=== PATIENT | female | born 1995 | race African-American/Black ===

== ENCOUNTER 2017-09-03 06:37 | Emergency (ER) | payer BC, MEDICAID ==
[~2017-09-03] VITALS: Ht 172.7 cm; Wt 55.0 kg
[~2017-09-03 06:37] MED LIST: ASAC800T PO
[2017-09-03 06:38] VITALS: BP 135/80; PULSE 101; RESP 16; TEMP 98.7; O2SAT 100
[2017-09-03] MEDS ORDERED: ONDANSETRON HCL 4 MG/2 ML VIAL IV PUSH ONE (07:00)
[2017-09-03] MEDS ORDERED: SODIUM CHLOR 0.9% 1000 ML INJ 1,000 ML IV ONE ×2 (07:00→08:30)
[2017-09-03] MEDS ORDERED: SODIUM CHLORIDE 0.9% FLUSH 10 ML FLUSH IVF PRN (07:00)
[2017-09-03 07:42] LABS: AUTOMATED NEUTROPHIL # 7.8 TH/MM3 (1.8-7.7); BASOPHIL # 0.1 TH/MM3 (0-0.2); BASOPHIL % 0.8 % (0.0-2.0); EOSINOPHIL # 0.1 TH/MM3 (0-0.4); EOSINOPHIL % 0.6 % (0.0-4.0); HEMATOCRIT 40.1 % (35.0-46.0); HEMO FLAGS DIFF FINAL; LYMPH % 21.5 % (9.0-44.0); LYMPHOCYTE # 2.3 TH/MM3 (1.0-4.8); MEAN CELL VOLUME 86.7 FL (80.0-100.0); MEAN CORPUSCULAR HEMOGLOBIN 29.6 PG (27.0-34.0); MEAN CORPUSCULAR HGB CONC 34.1 % (32.0-36.0); MONO % 3.7 % (0.0-8.0); NEUT % 73.4 % (16.0-70.0); PLATELET COUNT 230 TH/MM3 (150-450); RED BLOOD COUNT 4.62 MIL/MM3 (4.00-5.30); RED CELL DISTRIBUTION WIDTH 13.1 % (11.6-17.2); WHITE BLOOD COUNT 10.6 TH/MM3 (4.0-11.0)
[2017-09-03] MEDS ORDERED: ZOFR4TAB PO (07:44)
--- NOTE | 2017-09-03 07:44 | PD ---
HPI . Vomiting Chief Complaint: GI Complaint Time Seen by Provider: 07:00 Travel History International Travel<30 days: No Contact w/Intl Traveler<30days: No Traveled to known affect area: No History of Present Illness HPI This patient presents with a chief complaint of vomiting. Onset was 2 AM. Diarrhea. No urinary tract symptoms. No [employer] symptoms. Subjective fevers and chills. No modifying factors. PFSH Past Medical History Narrative Medical Previous "kidney problems." Medical History: Denies Significant Hx Diminished Hearing: No Gastrointestinal Disorders: Yes (COLITIS) ?: Not LMP: AUG 28, 2017 : 0 Past Surgical History Surgical History: No Previous Surgery Social History Alcohol Use: Yes (SOCIALLY) Tobacco Use: Yes Substance Use: No Allergies-Medications (Allergen,Severity, Reaction): Coded Allergies: sulfamethoxazole (Unverified Allergy, Mild, rash, 05/23/17) hives trimethoprim (Unverified Allergy, Mild, rash, 05/23/17) hives Reported Meds & Prescriptions Reported Meds & Active Scripts Active Zofran (Ondansetron HCl) 4 Mg Tab 4 Mg PO Q6HR PRN Reported Asacol Hd (Mesalamine) 800 Mg Tab 800 Mg PO Review of Systems Except as stated in HPI: all other systems reviewed are Neg General / Constitutional: Positive: Fever, Chills Gastrointestinal: Positive: Nausea, Vomiting, No: Diarrhea, Abdominal Pain Genitourinary: No: Urgency, Frequency, Dysuria, Discharge, Vaginal Bleeding Physical Exam Narrative GENERAL: Awake and alert and in no acute distress. SKIN: warm/dry. Good turgor. HEAD: Normocephalic. Atraumatic. EYES: Pupils equal and round. No scleral icterus. No injection or drainage. ENT: No nasal bleeding or discharge. Mucous membranes pink and moist. NECK: Trachea midline. Full range of motion without pain.. CARDIOVASCULAR: Regular rate and rhythm. RESPIRATORY: No accessory muscle use. Clear to auscultation. Breath sounds equal bilaterally. GASTROINTESTINAL: Abdomen soft. Nontender. Bowel sounds present. Nondistended. : MUSCULOSKELETAL: No obvious deformities. NEUROLOGICAL: Awake and alert. No obvious cranial nerve deficits. Motor grossly within normal limits. Normal speech. PSYCHIATRIC: Appropriate mood and affect; insight and judgment normal. Data Data Last Documented VS Vital Signs Date Time Temp Pulse Resp B/P (MAP) Pulse Ox O2 Delivery O2 Flow Rate FiO2 09/03/17 06:38 98.7 101 16 135/80 (98) 100 Room Air Orders Orders Complete Blood Count With Diff (09/03/17 07:00) Basic Metabolic Panel (Bmp) (09/03/17 07:00) Urinalysis - C+S If Indicated (09/03/17 07:00) Iv Access Insert/Monitor (09/03/17 07:00) Ondansetron Inj (Zofran Inj) (09/03/17 07:00) Sodium Chlor 0.9% 1000 Ml Inj (Ns 1000 M (09/03/17 07:00) Sodium Chloride 0.9% Flush (Ns Flush) (09/03/17 07:00) Ed Urine Pregnancytest Poc (09/03/17 07:00) Diphenhydramine Inj (Benadryl Inj) (09/03/17 08:30) Prochlorperazine Inj (Compazine Inj) (09/03/17 08:30) Sodium Chlor 0.9% 1000 Ml Inj (Ns 1000 M (09/03/17 08:30) Labs Laboratory Tests Test 09/03/17 07:20 White Blood Count 10.6 TH/MM3 Red Blood Count 4.62 MIL/MM3 Hemoglobin 13.7 GM/DL Hematocrit 40.1 % Mean Corpuscular Volume 86.7 FL Mean Corpuscular Hemoglobin 29.6 PG Mean Corpuscular Hemoglobin Concent 34.1 % Red Cell Distribution Width 13.1 % Platelet Count 230 TH/MM3 Mean Platelet Volume 8.9 FL Neutrophils (%) (Auto) 73.4 % Lymphocytes (%) (Auto) 21.5 % Monocytes (%) (Auto) 3.7 % Eosinophils (%) (Auto) 0.6 % Basophils (%) (Auto) 0.8 % Neutrophils # (Auto) 7.8 TH/MM3 Lymphocytes # (Auto) 2.3 TH/MM3 Monocytes # (Auto) 0.4 TH/MM3 Eosinophils # (Auto) 0.1 TH/MM3 Basophils # (Auto) 0.1 TH/MM3 CBC Comment DIFF FINAL Differential Comment Urine Color YELLOW Urine Turbidity HAZY Urine pH 8.5 Urine Specific [place] 1.021 Urine Protein 100 mg/dL Urine Glucose (UA) NEG mg/dL Urine Ketones 10 mg/dL Urine Occult Blood NEG Urine Nitrite NEG Urine Bilirubin NEG Urine Urobilinogen LESS THAN 2.0 MG/DL Urine Leukocyte Esterase NEG Urine RBC 1 /hpf Urine WBC 1 /hpf Urine Squamous Epithelial Cells 22 /hpf Urine Bacteria RARE /hpf Urine Mucus FEW /lpf Microscopic Urinalysis Comment CULT NOT INDICATED Blood Urea Nitrogen 10 MG/DL Creatinine 0.83 MG/DL Random Glucose 152 MG/DL Calcium Level 8.9 MG/DL Sodium Level 137 MEQ/L Potassium Level 3.2 MEQ/L Chloride Level 103 MEQ/L Carbon Dioxide Level 24.6 MEQ/L Anion Gap 9 MEQ/L Estimat Glomerular Filtration Rate 104 ML/MIN [facility] Medical Decision Making Medical Screen Exam Complete: Yes Emergency Medical Condition: Yes Differential Diagnosis Differential diagnosis includes but is not limited to viral gastritis, food poisoning, pancreatitis, pneumonia, hepatitis, acute coronary syndrome, Narrative Course This patient presents with acute nausea and vomiting. She appears well- hydrated. However, she does mention that she has been told in the past that she has some sort of kidney issue. Her nausea and vomiting is being treated with IV Zofran. She'll be given a liter of fluid. I will check basic labs, urinalysis and test. HCG neg. UA neg. CBC & BMP Diagram 09/03/17 07:20 Calcium Level 8.9 The patient rates that she continues to feel nauseous and having dry heaves. I will give her another liter of fluid along with Compazine and Benadryl. 0930 AM Patient is now resting comfortably. She has had no further nausea or dry heaves is being given Compazine and Benadryl. She will now be discharged home. Diagnosis Primary Impression: Vomiting Qualified Codes: R11.2 - Nausea with vomiting, unspecified Patient Instructions: Acute Nausea and Vomiting (DC), General Instructions Med/Other Pt SpecificInfo: Prescription(s) given Scripts Ondansetron (Zofran) 4 Mg Tab 4 MG PO Q6HR Y for NAUSEA OR VOMITING, #6 TAB 0 Refills Prov: Chantelle Mcmanus MD 09/03/17 Disposition: 01 DISCHARGE HOME Condition: Stable Chantelle Mcmanus MD Sep 03, 2017 07:44
[2017-09-03 07:51] LABS: BACTERIA, URINE RARE /hpf; BLOOD, URINE NEG (NEG); COMMENT (UR) CULT NOT INDICATED; CULTURE IF INDICATED CULT NOT INDICATED; GLUCOSE,URINE NEG (NEG); KETONE, URINE 10 mg/dL (NEG); MUCUS URINE FEW /lpf (OCC); NITRITE,URINE NEG (NEG); PH, URINE 8.5 (5.0-8.5); SQUAMOUS EPITHELIAL CELL URINE 22 /hpf (0-5); URINE COLOR YELLOW (YELLW/STRAW)
[2017-09-03 08:11] LABS: BICARBONATE 24.6 MEQ/L (21.0-32.0); POTASSIUM 3.2 MEQ/L (3.5-5.1)
[2017-09-03] MEDS ORDERED: PROCHLORPERAZINE INJ 10 MG/2 ML VIAL IV PUSH ONE (08:30)
[2017-09-03] MEDS ORDERED: diphenhydrAMINE HCL 50 MG/ML VIAL IV PUSH ONE (08:30)
[2017-09-03 10:19] VITALS: BP 124/72
== END 2017-09-03 10:20 | disposition home or self-care (01) ==
LOC: NEPC 06:37
DX: R11.2 Nausea with vomiting, unspecified (principal); R19.7 Diarrhea, unspecified; Z72.0 Tobacco use
CPT/HCPCS: 80048; 81001; 84703; 85025; 96361; 96374; 96375; 99285; J0780; J1200; J2405; J7030

== ENCOUNTER 2018-01-19 16:09 | Emergency (ER) | payer BC, MEDICAID ==
[~2018-01-19] VITALS: Ht 172.7 cm; Wt 56.5 kg
[~2018-01-19 16:09] MED LIST changes: +ZOFR4TAB PO
[2018-01-19 16:29] VITALS: BP 112/55; PULSE 57; RESP 18; TEMP 99.3; O2SAT 100
[2018-01-19 19:48] VITALS: BP 147/76; PULSE 62; RESP 18; O2SAT 100
[2018-01-19] MEDS ORDERED: SODIUM CHLOR 0.9% 1000 ML INJ 1,000 ML IV SCH (20:48)
--- NOTE | 2018-01-19 20:50 | PD ---
HPI Chief Complaint: GI Complaint Time Seen by Provider: 20:46 Travel History International Travel<30 days: No Contact w/Intl Traveler<30days: No Traveled to known affect area: No History of Present Illness HPI 22-year-old female here for evaluation of nausea, vomiting, abdominal cramping, body cramping. Patient admits to drinking a moderate amount of alcohol yesterday evening. She states she usually does not drink alcohol. She denies illicit drug use. Currently she denies having abdominal pain. She has had several episodes of vomiting. She was having some left upper quadrant abdominal discomfort which has resolved. She complains of diffuse body cramps. PFSH Past Medical History Diminished Hearing: No Gastrointestinal Disorders: Yes (COLITIS) Tetanus Vaccination: < 5 Years ?: Not LMP: 01/19/18 : 0 Past Surgical History Surgical History: No Previous Surgery Social History Alcohol Use: Yes (SOCIALLY) Tobacco Use: Yes Substance Use: Yes (Marijuana occasionally) Allergies-Medications (Allergen,Severity, Reaction): Coded Allergies: sulfamethoxazole (Unverified Allergy, Mild, rash, 01/19/18) hives trimethoprim (Unverified Allergy, Mild, rash, 01/19/18) hives Reported Meds & Prescriptions Reported Meds & Active Scripts Active No Active Prescriptions or Reported Medications Review of Systems Except as stated in HPI: all other systems reviewed are Neg Physical Exam Narrative GENERAL: Well-developed, well-nourished, comfortable, no apparent distress. SKIN: Focused skin assessment warm/dry. HEAD: Atraumatic. Normocephalic. EYES: Pupils equal and round. No scleral icterus. No injection or drainage. ENT: No nasal bleeding or discharge. Mucous membranes pink and moist. NECK: Trachea midline. No JVD. CARDIOVASCULAR: Regular rate and rhythm. RESPIRATORY: No accessory muscle use. Clear to auscultation. Breath sounds equal bilaterally. GASTROINTESTINAL: Abdomen soft, non-tender, nondistended. MUSCULOSKELETAL: No obvious deformities. No clubbing. No cyanosis. No edema. NEUROLOGICAL: Awake and alert. No obvious cranial nerve deficits. Motor grossly within normal limits. Normal speech. PSYCHIATRIC: Appropriate mood and affect; insight and judgment normal. Data Data Last Documented VS Vital Signs Date Time Temp Pulse Resp B/P (MAP) Pulse Ox O2 Delivery O2 Flow Rate FiO2 01/19/18 19:48 62 18 147/76 (99) 100 Room Air 01/19/18 16:29 99.3 Orders Orders Beta Hcg (Quant/Titer) (01/19/18 20:48) Complete Blood Count With Diff (01/19/18 20:48) Comprehensive Metabolic Panel (01/19/18 20:48) Lipase (01/19/18 20:48) Urinalysis - C+S If Indicated (01/19/18 20:48) Iv Access Insert/Monitor (01/19/18 20:48) Ecg Monitoring (01/19/18 20:48) Oximetry (01/19/18 20:48) Sodium Chlor 0.9% 1000 Ml Inj (Ns 1000 M (01/19/18 20:48) Sodium Chloride 0.9% Flush (Ns Flush) (01/19/18 21:00) Ondansetron Inj (Zofran Inj) (01/19/18 21:00) Potassium Chloride (Kcl) (01/19/18 22:00) Labs Laboratory Tests Test 01/19/18 21:10 White Blood Count 16.3 TH/MM3 Red Blood Count 4.45 MIL/MM3 Hemoglobin 13.4 GM/DL Hematocrit 39.5 % Mean Corpuscular Volume 88.9 FL Mean Corpuscular Hemoglobin 30.2 PG Mean Corpuscular Hemoglobin Concent 34.0 % Red Cell Distribution Width 13.1 % Platelet Count 208 TH/MM3 Mean Platelet Volume 9.1 FL Neutrophils (%) (Auto) 86.4 % Lymphocytes (%) (Auto) 7.5 % Monocytes (%) (Auto) 5.7 % Eosinophils (%) (Auto) 0.0 % Basophils (%) (Auto) 0.4 % Neutrophils # (Auto) 14.1 TH/MM3 Lymphocytes # (Auto) 1.2 TH/MM3 Monocytes # (Auto) 0.9 TH/MM3 Eosinophils # (Auto) 0.0 TH/MM3 Basophils # (Auto) 0.1 TH/MM3 CBC Comment DIFF FINAL Differential Comment Urine Color YELLOW Urine Turbidity CLEAR Urine pH 6.5 Urine Specific [place] 1.043 Urine Protein 300 mg/dL Urine Glucose (UA) NEG mg/dL Urine Ketones 150 mg/dL Urine Occult Blood NEG Urine Nitrite NEG Urine Bilirubin NEG Urine Urobilinogen LESS THAN 2.0 MG/DL Urine Leukocyte Esterase NEG Urine WBC 2 /hpf Urine Squamous Epithelial Cells 2 /hpf Urine Bacteria RARE /hpf Urine Mucus MANY /lpf Microscopic Urinalysis Comment CULT NOT INDICATED Blood Urea Nitrogen 9 MG/DL Creatinine 0.95 MG/DL Random Glucose 91 MG/DL Total Protein 8.2 GM/DL Albumin 4.4 GM/DL Calcium Level 9.5 MG/DL Alkaline Phosphatase 58 U/L Aspartate Amino Transf (AST/SGOT) 16 U/L Alanine Aminotransferase (ALT/SGPT) 20 U/L Total Bilirubin 0.5 MG/DL Sodium Level 136 MEQ/L Potassium Level 3.4 MEQ/L Chloride Level 103 MEQ/L Carbon Dioxide Level 24.3 MEQ/L Anion Gap 9 MEQ/L Estimat Glomerular Filtration Rate 89 ML/MIN Lipase 71 U/L Human Chorionic Gonadotropin, Quant LESS THAN 1 MIU/ML MDM Medical Decision Making Medical Screen Exam Complete: Yes Emergency Medical Condition: Yes Differential Diagnosis Dehydration, metabolic abnormality Narrative Course Vital signs reviewed. Patient is afebrile. CBC is remarkable for WBC 16.3 with 86% neutrophils which is likely from stress demargination from vomiting. CMP is remarkable for potassium 3.4, otherwise unremarkable. Lipase is 71. Beta-hCG is negative. UA shows 150 ketones, not suggestive of UTI. Patient was given a liter of normal saline IV, 20 mEq of potassium orally, and IV Zofran, and on reassessment she is feeling improved. There are no peritoneal signs and her abdominal exam and I do not believe that there is an acute intra-abdominal process to warrant CT imaging at this time. Patient symptoms are likely secondary to alcohol consumption/dehydration. She is tolerating clear liquids orally in the emergency department and is stable for discharge home with outpatient follow-up with a primary care physician this week. She was advised on when to return to the emergency department. She verbalizes understanding and agreement with plan. Diagnosis Primary Impression: Nausea and vomiting Qualified Codes: R11.2 - Nausea with vomiting, unspecified Referrals: Primary Care Physician 3 days Additional Instructions: Follow-up with a primary care physician this week. Stay hydrated with plenty of fluids. Return to the emergency department for worsening symptoms or any other concerns. Scripts Ondansetron Odt (Zofran Odt) 4 Mg Tab 4 MG SL Q8HR Y for Nausea/Vomiting, #20 TAB 0 Refills Prov: Marco Abreu MD 01/19/18 Disposition: 01 DISCHARGE HOME Condition: Marco Holt MD Jan 19, 2018 20:50
[2018-01-19] MEDS ORDERED: ONDANSETRON HCL 4 MG/2 ML VIAL IV PUSH ONE (21:00)
[2018-01-19] MEDS ORDERED: SODIUM CHLORIDE 0.9% FLUSH 10 ML FLUSH IV FLUSH PRN (21:00)
[2018-01-19 21:29] LABS: AUTOMATED NEUTROPHIL # 14.1 TH/MM3 (1.8-7.7); BASOPHIL # 0.1 TH/MM3 (0-0.2); BASOPHIL % 0.4 % (0.0-2.0); HEMATOCRIT 39.5 % (35.0-46.0); HEMOGLOBIN 13.4 GM/DL (11.6-15.3); LYMPH % 7.5 % (9.0-44.0); LYMPHOCYTE # 1.2 TH/MM3 (1.0-4.8); MEAN CELL VOLUME 88.9 FL (80.0-100.0); MEAN CORPUSCULAR HEMOGLOBIN 30.2 PG (27.0-34.0); MEAN PLATELET VOLUME 9.1 FL (7.0-11.0); MONO % 5.7 % (0.0-8.0); MONOCYTE # 0.9 TH/MM3 (0-0.9); NEUT % 86.4 % (16.0-70.0); PLATELET COUNT 208 TH/MM3 (150-450); RED BLOOD COUNT 4.45 MIL/MM3 (4.00-5.30); RED CELL DISTRIBUTION WIDTH 13.1 % (11.6-17.2); WHITE BLOOD COUNT 16.3 TH/MM3 (4.0-11.0)
[2018-01-19 21:36] LABS: BILIRUBIN, URINE NEG (NEG); BLOOD, URINE NEG (NEG); GLUCOSE,URINE NEG (NEG); KETONE, URINE 150 mg/dL (NEG); MUCUS URINE MANY /lpf (OCC); NITRITE,URINE NEG (NEG); PH, URINE 6.5 (5.0-8.5); SQUAMOUS EPITHELIAL CELL URINE 2 /hpf (0-5); URINE COLOR YELLOW (YELLW/STRAW); URINE LEUKOCYTE ESTERASE NEG (NEG)
[2018-01-19 21:37] LABS: BACTERIA, URINE RARE /hpf
[2018-01-19 21:50] LABS: ALBUMIN 4.4 GM/DL (3.4-5.0); AST (GOT) 16 U/L (15-37); BICARBONATE 24.3 MEQ/L (21.0-32.0); BLOOD UREA NITROGEN 9 MG/DL (7-18); CALCIUM 9.5 MG/DL (8.5-10.1); CHLORIDE 103 MEQ/L (98-107); CREATININE 0.95 MG/DL (0.50-1.00); GLOMERULAR FILTRATION RATE 89 ML/MIN (>89); GLUCOSE,RANDOM 91 MG/DL (74-106); SODIUM (NA) 136 MEQ/L (136-145)
[2018-01-19 21:51] LABS: ALT (GPT) 20 U/L (10-53)
[2018-01-19 21:55] LABS: ALKALINE PHOSPHATASE 58 U/L (45-117); TOTAL BILIRUBIN ADULT 0.5 MG/DL (0.2-1.0); TOTAL PROTEIN 8.2 GM/DL (6.4-8.2)
[2018-01-19] MEDS ORDERED: POTASSIUM CHLORIDE 20 MEQ CONTROLLED RELEASE TAB PO ONE (22:00)
[2018-01-19] MEDS ORDERED: ZOFR4TAB3 SL (22:10)
== END 2018-01-19 22:49 | disposition home or self-care (01) ==
LOC: NEPD 16:09
DX: R11.2 Nausea with vomiting, unspecified (principal); Z72.0 Tobacco use
CPT/HCPCS: 80053; 81001; 83690; 84702; 85025; 96361; 96374; 99283; J2405; J7030